=== PATIENT | female | born 1965 | race Caucasian/White ===

== ENCOUNTER 2018-11-28 11:17 | Day surgery (SDC) | payer BC ==
[2018-11-28] MEDS ORDERED: GLYCOPYRROLATE 0.4 MG INJ (12:31)
[2018-11-28] MEDS ORDERED: CEFAZOLIN 1 GM INJ (12:31)
[2018-11-28] MEDS ORDERED: NEOSTIGMINE 3 MG/3 ML SYRINGE (12:31)
[2018-11-28] MEDS ORDERED: PROPOFOL 20 ML (12:31)
[2018-11-28] MEDS ORDERED: ROCURONIUM 50 MG INJ ×2 (12:31)
[2018-11-28] MEDS ORDERED: ONDANSETRON 4 MG INJ (12:32)
[2018-11-28] MEDS ORDERED: DEXAMETHASONE 4 MG/ML 5 ML INJ (12:32)
[2018-11-28] MEDS ORDERED: FENTAnyl 50 MCG/ML VIAL (12:32)
[2018-11-28] MEDS ORDERED: MIDAZOLAM 1 MG/ML 2 ML INJ ×2 (12:32→14:12)
[2018-11-28] MEDS ORDERED: ROPIVACAINE 0.5 % 30 ML VIAL (12:32)
[2018-11-28] MEDS ORDERED: LABETALOL HCL 20MG INJ (12:39)
[2018-11-28] MEDS ORDERED: LACTATED RINGER'S 1,000 ML IV (13:00)
[2018-11-28] MEDS: ROPIVACAINE 0.5 % 30 ML VIAL (15:08)
[2018-11-28] MEDS: POLYMYXIN/BACITRACIN 1L IRRIG (15:08)
[2018-11-28] MEDS: POVIDONE IODINE 10% 28.4 GM OINT (15:08)
[2018-11-28] MEDS ORDERED: KETOROLAC 30 MG INJ (17:13)
[2018-11-28] MEDS ORDERED: FENTAnyl 50 MCG/ML VIAL IV (17:30)
[2018-11-28] MEDS ORDERED: LABETALOL HCL 20MG INJ IV (17:30)
[2018-11-28] MEDS ORDERED: MEPERIDINE 25 MG INJ IV (17:30)
[2018-11-28] MEDS ORDERED: DIPHENHYDRAMINE 50 MG INJ IV (17:30)
[2018-11-28] MEDS ORDERED: hydrALAzine 20 MG INJ IV (17:30)
[2018-11-28] MEDS ORDERED: HYDROmorphONE 1 MG/5 ML IV SYRINGE IV ×3 (17:30)
[2018-11-28] MEDS ORDERED: TRIMETHOBENZAMIDE 100 MG/ML VIAL IM (17:30)
[2018-11-28] MEDS ORDERED: EPHEDrine 25 MG/5 ML SYG IV (17:30)
[2018-11-28] MEDS ORDERED: MIDAZOLAM 1 MG/ML 2 ML INJ IV (17:30)
[2018-11-28] MEDS ORDERED: IPRATROPIUM (NEB) 0.5 MG/2.5 ML AMP HHN (17:30)
[2018-11-28] MEDS ORDERED: ALBUTEROL 0.083% (NEB) 2.5 MG/3 ML AMP HHN (17:30)
[2018-11-28] MEDS ORDERED: OXYCODONE/ACETAMINOPHEN (5/325) TAB PO ×3 (17:30→18:00)
[2018-11-28] MEDS ORDERED: SOD CHLORIDE 0.9% 1,000 ML IV (17:52)
[2018-11-28] MEDS ORDERED: morphine 2 MG INJ IV (18:00)
[2018-11-28] MEDS ORDERED: ONDANSETRON 4 MG INJ IV (18:00)
[2018-11-28] MEDS: FENTAnyl 50 MCG/ML VIAL IV ×3 (18:30→18:46)
[2018-11-28] MEDS: ONDANSETRON 4 MG INJ IV (18:32)
[2018-11-28] MEDS: OXYCODONE/ACETAMINOPHEN (5/325) TAB PO (18:44)
== END 2018-11-28 19:43 | disposition home or self-care (01) ==
LOC: SDS 11:17
DX: M25.871 Other specified joint disorders, right ankle and foot (principal); M25.371 Other instability, right ankle; M25.771 Osteophyte, right ankle; I25.10 Atherosclerotic heart disease of native coronary artery without angina pectoris; J45.909 Unspecified asthma, uncomplicated; K21.9 Gastro-esophageal reflux disease without esophagitis; I25.2 Old myocardial infarction
CPT/HCPCS: 27698; 73610-RT